=== PATIENT | male | born 1965 | race African-American/Black ===

== ENCOUNTER 2024-06-14 13:43 | Inpatient (IN) | payer OTHER, SELFPAY ==
--- NOTE | ~2024-06-14 | CT_ITS ---
EXAMINATION: CT HEAD WITHOUT CONTRAST CLINICAL INFORMATION: Dizziness COMPARISON: None available. TECHNIQUE: Contiguous axial imaging was performed from the skull base to vertex without intravenous administration of contrast. This CT examination was performed using dose optimization techniques as appropriate, variously including the following: *Automated exposure control *Adjustment of mA and/or kV according to patient size (this includes techniques or standardized protocols for targeted exams where dose is matched to indication/reason for exam; i.e. extremities or head) *Use of iterative reconstruction technique DLP: 735 mGy-cm FINDINGS: No intra or extra-axial fluid collection or hemorrhage, mass, or mass effect. Calvarium intact. CT/CT head/brain wo IV con IMPRESSION: No acute intracranial pathology. Electronically signed by: Scottie Dexter MD 06/14/2024 03:58 PM EDT
--- NOTE | ~2024-06-14 | CT_ITS ---
EXAMINATION: CT ANGIOGRAM HEAD CT ANGIOGRAM NECK CLINICAL INFORMATION: Dizziness. Ataxia. COMPARISON: CT head from 06/14/2024. TECHNIQUE: Initial noncontrast parts lister imaging of the head and neck was performed. Comparison is made with noncontrast head CT from earlier today. Test bolus sequences followed by intravenous administration 70 mL of Omnipaque 350. Helical imaging was performed in the axial plane from the aortic arch to the skull vertex. Delayed postcontrast imaging of the head was also performed. The data was processed at the cytogenetics technologist's workstation for generation of MIP sequences. Angled MIPs and volume rendered reformatted images were also generated at an offline 3D workstation. Stenoses are assessed in accordance with NASCET criteria unless otherwise indicated. This CT examination was performed using dose optimization techniques as appropriate, variously including the following: *Automated exposure control. *Adjustment of mA and/or kV according to patient size (this includes techniques or standardized protocols for targeted exams where dose is matched to indication/reason for exam; i.e. extremities or head). *Use of iterative reconstruction technique. DLP: 1679 mGy-cm FINDINGS: CT Head: There is a small region of loss garay-white matter differentiation in the superior vermis. No evidence of additional acute intracranial hemorrhage or edematous territorial infarction. Garay-white matter differentiation is preserved. A few foci of hypoattenuation in the periventricular and deep white matter are consistent with mild microangiopathy. Persistent cavum septum pellucidum. Otherwise, the ventricles are normal in morphology and size. No evidence for obstructive hydrocephalus. No abnormal mass effect or midline shift. No extra-axial fluid collections. No pathologic intra-axial enhancement. No acute soft tissue or osseous abnormalities. Moderate mucosal thickening of the paranasal sinuses. The mastoid air cells and middle ear cavities are clear. Multifocal odontogenic enamel erosions and periapical lucencies. CT Neck: The thyroid gland and remaining cervical soft tissues are within normal limits. Straightening of the normal cervical lordosis. Moderate degenerative disc disease at C3-C4 and from C5-C7. Facet and uncovertebral joint arthropathy leads to osseous encroachment on the neural foramina from C2-T2. CT Upper Chest: The visualized lung apices and upper mediastinum are within normal limits. Neck CTA: Aortic Arch: Normal contour and caliber. Two vessel branching pattern of the arch with left common carotid artery arising from the brachiocephalic trunk. Great Vessel Origins: No significant stenosis of the branch origins. Right Common Carotid Artery: No focal stenosis or occlusion. Cervical Right Internal Carotid Artery: Mild calcific atherosclerotic disease of the carotid bulb and proximal internal carotid artery without flow-limiting stenosis. Left Common Carotid Artery: No focal stenosis or occlusion. Cervical Left Internal Carotid Artery: Mild mixed fibrofatty and calcific atherosclerotic disease of the carotid bulb and proximal internal carotid artery causing less than 50% stenosis. Cervical Right Vertebral Artery: Co-dominant. No focal stenosis or occlusion. Cervical Left Vertebral Artery: Co-dominant. No focal stenosis or occlusion. Brain CTA: Intracranial Internal Carotid Arteries: Mild calcific atherosclerotic disease of the intracranial internal carotid arteries without occlusion or flow-limiting stenosis. Right Anterior Cerebral Artery: Normal A1 segment. Normal opacification of the distal HEMALATHA segments. Left Anterior Cerebral Artery: Normal A1 segment. Normal opacification of the distal HEMALATHA segments. Anterior Communicating Artery: Normal. Right Middle Cerebral Artery: Normal M1 segment of the MCA without focal stenosis or occlusion. Normal arborization of the distal segments. Left Middle Cerebral Artery: Normal M1 segment of the MCA without focal stenosis or occlusion. Normal arborization of the distal segments. Right Vertebral Artery: Normal V4 segment. Normal opacification of the proximal segments of the posterior inferior cerebellar artery. Left Vertebral Artery: Normal V4 segment. The posterior inferior cerebellar artery is not well opacified; however, there is no CT evidence of acute occlusion. Basilar Artery: Normal without focal stenosis or occlusion. Normal appearance of the proximal superior cerebellar arteries. Right Posterior Cerebral Artery: Normal P1 segment. Normal posterior communicating artery. Normal opacification of the distal CRITICAL CARE NURSE SPECIALIST segments. Left Posterior Cerebral Artery: The P1 segment is mildly diminutive. origin of the CRITICAL CARE NURSE SPECIALIST with robust opacification of the posterior communicating artery. Normal opacification of the distal CRITICAL CARE NURSE SPECIALIST segments. Normal opacification of the superior sagittal, straight, transverse, and sigmoid sinuses. CT/CT angio head neck IMPRESSION: 1. Small region of loss garay-white matter differentiation in the superior vermis suggestive of an acute/subacute infarction. 2. No evidence of additional acute intracranial hemorrhage or edematous territorial infarction. Mild underlying microangiopathy. 3. CTA of the head and neck without proximal occlusion or flow-limiting stenosis. 4. Moderate multilevel degenerative spondyloarthropathy of the cervical spine. Electronically signed by: Jose Aldana DO 06/14/2024 05:30 PM EDT
--- NOTE | ~2024-06-14 | MR_ITS ---
EXAMINATION: MR BRAIN WITHOUT CONTRAST CLINICAL INFORMATION: Acute/subacute cerebrovascular accident. COMPARISON: CTA head and neck from 06/14/2024. TECHNIQUE: MRI of the brain was obtained using routine sequences without contrast. FINDINGS: Small region of restricted diffusion within the superior vermis. Associated T2 FLAIR hyperintensity. Mild susceptibility artifact within this region. No additional restricted diffusion. No evidence of additional acute or chronic hemorrhagic products on heme-sensitive imaging. Scattered periventricular and deep white matter T2 FLAIR hyperintensities consistent with mild underlying microangiopathy. Persistent cavum septum pellucidum et vergae. Otherwise, the ventricles are normal in morphology and size. No abnormal mass effect. No midline shift. Normal appearance of the pituitary gland. Normal positioning of the cerebellar tonsils. Normal arterial and venous vascular flow voids are present. Normal, homogeneous marrow signal. Mild mucosal thickening of the paranasal sinuses. No signal abnormalities within the mastoids. MR/MR head/brain wo con IMPRESSION: 1. Small acute infarct of the superior vermis. Mild susceptibility artifact within this region suggestive of mild petechial hemorrhage. 2. No additional acute intracranial abnormalities. 3. Mild nonspecific chronic white matter changes. Electronically signed by: Jose Aldana DO 06/15/2024 09:10 PM EDT
[2024-06-14 14:34] VITALS: BP 136/84; PULSE 71; RESP 18; TEMP 36.1; O2SAT 99; BMI 29.1
--- NOTE | 2024-06-14 14:40 | ECG_ITS ---
Test Reason : DIZZINESS Blood Pressure : / mmHG Vent. Rate : 068 BPM Atrial Rate : 068 BPM P-R Int : 160 ms QRS Dur : 144 ms QT Int : 440 ms P-R-T Axes : 048 -76 032 degrees QTc Int : 467 ms Normal sinus rhythm Left axis deviation Right bundle branch block Abnormal ECG No previous ECGs available Referred By: Beverly Segura Electronically Signed By:Trung Prince
--- NOTE | 2024-06-14 14:42 | ED_ITS ---
HPI - Dizziness General Chief Complaint: Dizziness Stated Complaint: Vomiting, dizziness Time Seen by Provider: 06/14/24 15:11 History of Present Illness ED Provider: So SHELDON Narrative: The patient is a 59-year-old male who was originally from [facility]. 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 He has a primary care doctor through the [facility] system and he says he has been prescribed medications for hypertension but he does not take them. The patient says that yesterday afternoon he became suddenly and unexpectedly nauseated and vomited several times while driving home from a store. When he got out of the car he felt he had difficulty walking. This was around 4PM yesterday. He went to bed at that point and did not get up again until this morning. This morning he did not have any additional nausea or vomiting but he felt that his gait was abnormal. He has no associated headache. He has no associated speech difficulty. He has no associated sense of numbness or tingling or weakness or burning in his extremities. Because he had ongoing difficulty walking this morning he went to an urgent care center this morning where they told him he should come to the emergency room for further evaluation. He drove himself here. He says he does not have any difficulty driving. He says that he feels dizzy when walking and has difficulty walking but does not feel that head movements exacerbate his symptoms in any way. No headache. No fever, sweats, chills. No chest pain or shortness of breath. Related Data Home Medications ?Medication ?Instructions ?Recorded ?Confirmed cholecalciferol (vitamin D3) 25 25 mcg PO DAILY 06/14/24 06/14/24 mcg (1,000 unit) tablet (Vitamin D3) Allergies Allergy/AdvReac Type Severity Reaction Status Date / Time No Known Allergies Allergy Verified 06/14/24 14:36 Review of Systems 2 Review of Systems: Yes all other systems are reviewed and are negative PMFSH Social History Social History Smoked in Last 30 Days: No Use of substances other than those prescribed or required for medical reasons: No Advance Directives: No Advance Directives Information Provided: Yes Do you have a plan to hurt others: No Plan Physical Exam 2 Vital Signs: Vital Signs: Last Vital Signs Temp 97.2 F 06/14/24 20:29 Pulse 67 06/14/24 20:29 Resp 20 06/14/24 20:29 BP 147/84 H 06/14/24 20:29 Pulse Ox 98 06/14/24 20:29 O2 Del Method Room Air 06/14/24 20:29 BMI result Body Mass Index 29.1 Const: Other: The patient is awake and alert, pleasant and cooperative. He does not appear in obvious distress and he does not have any obvious neurological deficits. HEENT: Other: Face is symmetrical. Tongue is midline. Mucous membranes moist. Eyes: Other: The patient's right pupil is normal. The patient's left pupil has an unusual defect at the lower border of the pupil. The patient says this has been present for several years. Extraocular movements are intact. Visual blue are intact to confrontation. Neck: Neck: Yes full ROM and Yes no JVD Resp: Effort & Inspection: normal respiratory effort Auscultation: clear to auscultation bilaterally Cardio: Rate: regular rate Rhythm: regular rhythm Heart sounds: S1 normal heart sound present and S2 normal heart sound present GI: Other: Abdomen is soft and nontender Skin: Other: The skin is dry and unremarkable Neuro: Other: The patient is awake and alert with a normal mental status. He is appropriately oriented. Extraocular movements are intact. Visual blue are intact to confrontation. Face is symmetrical. Speech is clear. Strength and sensation is normal in all 4 extremities. There is no pronator drift. Finger-nose is normal. Heel-street is normal. Sensation is intact. He has a mild but distinct gait unsteadiness. His NIH stroke scale is 0. Extrem: Other: No peripheral edema Course Course Course Narrative: This is a rapid medical exam performed by Beverly Segura PA-C. The patient is a 59-year-old male otherwise healthy, presenting with dizziness x1 day. Patient states dizziness worse with ambulating, that he has been stumbling to the left. Symptoms are intermittent. On exam, patient objectively stumbled at 1 point, ataxic to the left. Otherwise neurologically intact. I am concerned for posterior circulation stroke. Order screening labs, troponin EKG, CT non- con brain, his assessment will be expedited Medications Administered Generic Name Dose Route Start Last Admin Trade Name Freq PRN Reason Stop Dose Admin Enoxaparin Sodium 40 mg 06/14/24 18:00 06/14/24 17:57 Enoxaparin Sodium 40 Mg/0.4 Ml Syringe SUBCUT 40 mg Q24H DUYEN Administration Discontinued Medications Generic Name Dose Route Start Last Admin Trade Name Latrice PRN Reason Stop Dose Admin Aspirin 324 mg 06/14/24 17:47 06/14/24 17:57 Aspirin 81 Mg Tab.Chew PO 06/14/24 17:48 324 mg ONCE ONE Administration Iohexol 70 ml 06/14/24 16:22 06/14/24 16:23 Iohexol 350 Mg/Ml 75 Ml Infus..Btl IV 06/14/24 16:23 70 ml ONCE ONE Administration Medical Decision Making Medical Decision Making [facility] Narrative: The patient is a 59-year-old male with a history of hypertension who was not currently on any medications. He had abrupt onset of vomiting and dizziness yesterday at 16:00. This was associated with some difficulty walking. The difficulty walking has persisted today. His NIH stroke scale is 0 but the NIH stroke scale does not taken to account gait. The patient presents with symptoms that could potentially be an ischemic stroke. He is not a thrombolytic candidate because his symptoms began more than 20 hours prior to arrival in the emergency room. A noncontrast head CT was done that was negative. Subsequently a CT angiogram of the head and neck was done. This shows no large vessel occlusions but does show possible evidence of a small region in the superior vermis which may represent an acute or subacute stroke. The patient passed his swallow evaluation and was given a dose of aspirin. The patient will be admitted to the hospitalist service for additional stroke care and further workup. Lab Data 06/14/24 15:11 06/14/24 15:11 Labs: Lab Results 06/14/24 Range/Units 15:11 WBC 6.0 (4.8-10.8) X10*3/uL RBC 4.36 L (4.60-5.80) X10*6/uL Hgb 13.4 L (14.0-18.0) g/dl Hct 38.2 L (42.0-52.0) % MCV 87.6 (80.0-98.0) fL MCH 30.7 (27.0-33.0) pg MCHC 35.1 (31.0-36.0) g/dl RDW 12.8 (11.0-16.0) % Plt Count 188 (160-400) X10*3/uL MPV 8.6 L (9.4-12.4) fL Immature Gran % (Auto) 0.2 (0.0-0.4) % Neut % (Auto) 60.5 (45-73) % Lymph % (Auto) 30.2 (20-40) % [place] % (Auto) 8.7 (2-11) % Eos % (Auto) 0.2 (0-4) % Baso % (Auto) 0.2 (0-2) % Lymph # (Auto) 1.8 (1.2-4.9) X10*3/uL [place] # (Auto) 0.5 (0.1-1.2) X10*3/uL Eos # (Auto) 0.0 (0.0-0.4) X10*3/uL Baso # (Auto) 0.0 (0.0-0.2) X10*3/uL Abs Immat Gran (auto) 0.01 (0.00-0.03) X10*3/uL Absolute Neuts (auto) 3.6 (2.0-8.3) x10*3/uL Absolute Nucleated RBC 0.000 (0.0-0.012) X10*3/uL Nucleated RBC % (auto) 0.0 (0.0-0.2) /100WBC Sodium 145 (135-145) mmol/L Potassium 3.5 (3.3-5.1) mmol/L Chloride 110 H (96-108) mmol/L Carbon Dioxide 27 (22-29) mmol/L Anion Gap 12 (12-20) BUN 9 (9-16) mg/dL Creatinine 0.98 (0.5-1.4) mg/dL Estim Creat Clear Calc 79.7 Estimated GFR > 60 Random Glucose 116 H (60-115) mg/dL Calcium 9.7 (8.4-10.2) mg/dL Magnesium 2.2 (1.6-2.6) mg/dL Total Bilirubin 0.7 (0.0-1.0) mg/dL AST 25 (5-37) U/L ALT 14 (0-40) U/L Alkaline Phosphatase 96 (39-117) U/L Troponin I High Sens < 2.7 (<3.5-35.0) ng/L Total Protein 7.5 (6.5-8.0) g/dL Albumin 4.3 (3.5-5.0) g/dL Critical Care Time Critical Care Time Critical Care Time: Yes Total Critical Care Time: 35 Attestation: The patient was critically ill with a high probability of imminent or life- threatening deterioration. ?I spent greater than 30 minutes of discontinuous time evaluating the patient, delivering critical care at the bedside, discussing evaluating data with consultants. ?Critical care time does not include time spent performing separately billable procedures or teaching. ?Time spent performing critical care with 35 minutes. Discharge Plan Discharge Clinical Impression: Difficulty walking Patient Disposition: Admitted As Inpatient
[2024-06-14 15:15] LABS: MANUAL DIFF FLAG NO
--- NOTE | 2024-06-14 15:15 | PC.NURSE ---
pt to CT scan
[2024-06-14 15:16] LABS: Basophils Percent Auto 0.2 % (0-2); Eosinophils Percent Auto 0.2 % (0-4); Hematocrit 38.2 % (42.0-52.0); Hemoglobin 13.4 g/dl (14.0-18.0); Imm Gran Abs Auto 0.01 X10*3/uL (0.00-0.03); Imm Gran Pct Auto 0.2 % (0.0-0.4); Lymphocytes Absolute Auto 1.8 X10*3/uL (1.2-4.9); Lymphocytes Percent Auto 30.2 % (20-40); Mean Corpuscular HGB Conc 35.1 g/dl (31.0-36.0); Mean Corpuscular Hemoglobin 30.7 pg (27.0-33.0); Mean Corpuscular Volume 87.6 fL (80.0-98.0); Mean Platelet Volume 8.6 fL (9.4-12.4); Monocytes Absolute Auto 0.5 X10*3/uL (0.1-1.2); Monocytes Percent Auto 8.7 % (2-11); Neutrophils Absolute Auto 3.6 x10*3/uL (2.0-8.3); Neutrophils Percent Auto 60.5 % (45-73); Platelet Count 188 X10*3/uL (160-400); Red Blood Count 4.36 X10*6/uL (4.60-5.80); Red Cell Distribution Width 12.8 % (11.0-16.0)
--- NOTE | 2024-06-14 15:18 | PC.NURSE ---
patient from external triage with cc of dizziness that happened yesterday after an episode of vomiting. patient states he got very dizzy yesterday and it has since resolved. patient states he went to urgent care and had negative workup and was told to come to ed for further assessment and evaluation. patient denies any complaints at this time, denies significant pmhx, denies chest pain or shortness of breath or swelling of extremities. neuros are intact. patients left pupil appears misshapen and dilated, patient states that is something that has been going on for a long time for him, he has an appointment with a specialist, states he has blurred vision out of that eye all of the time, but is not experiencing new symptoms. patient speaking in clear and complete sentences. equal strength bilaterally. blood work obtained and sent to lab.
[2024-06-14 15:46] LABS: Alanine Aminotransferase 14 U/L (0-40); Albumin Level 4.3 g/dL (3.5-5.0); Alkaline Phosphatase 96 U/L (39-117); Anion Gap 12 (12-20); Aspartate Amino Transferase 25 U/L (5-37); Bilirubin Total 0.7 mg/dL (0.0-1.0); Blood Urea Nitrogen 9 mg/dL (9-16); Calcium 9.7 mg/dL (8.4-10.2); Carbon Dioxide 27 mmol/L (22-29); Chloride 110 mmol/L (96-108); Creatinine Clr Calc Pharmacy 79.7; Estimated Glomerular Filt Rate > 60; Glucose Random 116 mg/dL (60-115); Magnesium 2.2 mg/dL (1.6-2.6); Potassium 3.5 mmol/L (3.3-5.1); Sodium 145 mmol/L (135-145); Total Protein 7.5 g/dL (6.5-8.0)
[2024-06-14 15:59] LABS: Troponin-I High Sensitivity < 2.7 ng/L (<3.5-35.0)
--- NOTE | 2024-06-14 16:15 | PC.NURSE ---
patient to CT, upon recieving contrast dye had significant episode of vomiting. upon this RN entering CT scan patient had no other complaints, no c/o rash, tingling or shortness of breath. made aware
[2024-06-14] MEDS: iohexoL 350 MG/ML 75 ML INFUS..BTL 70 ML IV (16:23)
[2024-06-14 16:31] VITALS: BP 162/85; PULSE 77; RESP 21; TEMP 36.2; O2SAT 99
[2024-06-14 17:54] VITALS: BP 150/85; PULSE 67; RESP 18; TEMP 36.8; O2SAT 96
[2024-06-14] MEDS: Enoxaparin Sodium 40 MG/0.4 ML SYRINGE SUBCUT (17:57)
[2024-06-14] MEDS: Aspirin 81 MG TAB.CHEW 324 MG PO (17:57)
--- NOTE | 2024-06-14 18:07 | P.HPHOSP_ITS ---
History of Present Illness Date of Service: 06/14/24 Chief Complaint: Nausea vomiting/unsteady gait 59-year-old gentleman originally from [place] with past medical history significant for hypertension, not taking antihypertensive prescribed by his PCP, since feel blood pressure fluctuates between normal to high, presented to [place] emergency room today, since yesterday afternoon after driving back from work he developed sudden onset of nausea and vomiting several times bilious , nonbloody without associated abdominal pain, no fevers no chills, when he got out of car he noted to have unsteady gait and dizziness, he went home and slept overnight this morning he woke up and continued to have dizziness and unsteady gait, not falling to 1 side, without recurrent nausea, vomiting, no associated weakness, numbness of extremities, no headache, no speech impairment denies similar symptoms in the past, due to these symptoms he went to urgent Care Clinic and was referred to [place] ED in the emergency room patient noted to have a normal neuro examination, CT head unremarkable, CBC showed hematocrit 38.2, normal platelet and WBC, normal electrolytes and renal function, blood sugar 116, magnesium normal, urine toxicology pending, CTA head and neck showed small region of loss of lazo-white matter differentiation in the superior vermis suggestive of an acute/subacute infarction, no evidence of additional acute intracranial hemorrhage or edematous territory infarction noted patient is being admitted to [facility] for further workup of acute CVA, EKG showed normal sinus rhythm, right bundle branch block no previous EKGs for comparison. Review of Systems 2 Review of Systems: General no headache, no fever chills. CVS no chest pain, no palpitation. Respiratory no cough, no sob, Gastrointestinal no nausea no vomiting, no abdominal pain no urgency, no frequency Skin no rash All other system reviewed and are negative PMFSH Pertinent family history: Both parents are diseased and of old age No family history of coronary artery disease, CVA Social History Household Members: Family Housing: Apartment Do you presently have visiting nurse or other home services: No Patient Tobacco Use Status: Never used Tobacco Smoked in Last 30 Days: No e-Cigarette/Vaping Use: Never Used Use of substances other than those prescribed or required for medical reasons: No Currently Displaying Signs/Symptoms of Drug Intoxication Withdrawal: No Any prior treatment program specific to substance use: No Have you been hit, kicked, punched, or otherwise hurt by someone within the past year? If so, by whom?: No Do you feel safe in your current relationship?: Yes Is there a partner from a previous relationship who is making you feel unsafe now?: No Are you made to feel afraid or neglected: No Advance Directives: No Advance Directives Information Provided: Yes Do you have a plan to hurt others: No Plan Recently lost weight without trying: No Nutrition Risks: No Nutritional Risk Poor oral hygiene: No Meds Allergies Allergy/AdvReac Type Severity Reaction Status Date / Time No Known Allergies Allergy Verified 06/14/24 14:36 Active Medications: Current Medications Acetaminophen (Acetaminophen 325 Mg Tablet) 650 mg PO Q6H PRN PRN Reason: Pain, Mild (Pain Scale 1-3), fever or headache Calcium Carbonate (Calcium Carbonate 750 Mg Tab.Chew) 750 mg PO Q4H PRN PRN Reason: Heartburn Enoxaparin Sodium (Enoxaparin Sodium 40 Mg/0.4 Ml Syringe) 40 mg SUBCUT Q24H [facility] Last Admin: 06/14/24 17:57 Dose: 40 mg Magnesium Hydroxide (Milk Of Magnesia 30 Ml Oral.Susp) 30 ml PO DAILY PRN PRN Reason: Constipation Melatonin (Melatonin 3 Mg Tablet) 6 mg PO BEDTIME PRN PRN Reason: Insomnia Ondansetron HCl (Ondansetron Hcl 4 Mg/2 Ml Vial) 4 mg IVPUSH Q8H PRN PRN Reason: Nausea and Vomiting Sodium Chloride (0.9 % Sodium Chloride Flush 3 Ml Syringe) 3 ml IVFLUSH QSHIFT [facility] Home Medications ?Medication ?Instructions ?Recorded ?Confirmed ?Last Taken ?Type cholecalciferol (vitamin D3) 25 25 mcg PO DAILY 06/14/24 06/14/24 06/13/24 History mcg (1,000 unit) tablet (Vitamin D3) Physical Exam 2 Vital Signs and Narrative: Vital Signs: Last Vital Signs Temp 98.2 F 06/14/24 17:54 Pulse 67 06/14/24 17:54 Resp 18 06/14/24 17:54 BP 150/85 H 06/14/24 17:54 Pulse Ox 96 06/14/24 17:54 O2 Del Method Room Air 06/14/24 17:54 BMI result Body Mass Index 29.1 Const: Other: General resting comfortably in no acute distress. Anicteric sclera/no nystagmus Neck no JVD. CVS regular rate rhythm, Respiratory lungs clear to auscultation, no respiratory distress, no wheeze, no rhonchi. Gastrointestinal abdomen soft, non tender, bowel sounds audible, no guarding , no rigidity. Extremities no edema. Neuro non focal ,moving all 4 extremity, speech clear, gait unsteady. Skin no rash Psych appropriate affect Results Labs 06/14/24 15:11 06/14/24 15:11 Labs: Laboratory Results - last 24 hr 06/14/24 15:11 MCV 87.6 MCH 30.7 MCHC 35.1 RDW 12.8 Plt Count 188 MPV 8.6 L Immature Gran % (Auto) 0.2 Neut % (Auto) 60.5 Lymph % (Auto) 30.2 [place] % (Auto) 8.7 Eos % (Auto) 0.2 Baso % (Auto) 0.2 Lymph # (Auto) 1.8 [place] # (Auto) 0.5 Eos # (Auto) 0.0 Baso # (Auto) 0.0 Abs Immat Gran (auto) 0.01 Absolute Neuts (auto) 3.6 Absolute Nucleated RBC 0.000 Nucleated RBC % (auto) 0.0 Anion Gap 12 Estim Creat Clear Calc 79.7 Estimated GFR > 60 Random Glucose 116 H Calcium 9.7 Magnesium 2.2 Total Bilirubin 0.7 AST 25 ALT 14 Alkaline Phosphatase 96 Troponin I High Sens < 2.7 Total Protein 7.5 Albumin 4.3 Imaging Radiologist's Impressions: Impressions Head CT 06/14/24 15:17 IMPRESSION: No acute intracranial pathology. Electronically signed by: Scottie Dexter MD 06/14/2024 03:58 PM EDT RP Head/Neck CTA 06/14/24 16:06 IMPRESSION: 1. Small region of loss lazo-white matter differentiation in the superior vermis suggestive of an acute/subacute infarction. 2. No evidence of additional acute intracranial hemorrhage or edematous territorial infarction. Mild underlying microangiopathy. 3. CTA of the head and neck without proximal occlusion or flow-limiting stenosis. 4. Moderate multilevel degenerative spondyloarthropathy of the cervical spine. Electronically signed by: Jose Aldana DO 06/14/2024 05:30 PM EDT RP Assessment and Plan (1) Acute CVA (cerebrovascular accident): Status: Acute Plan 59-year-old gentleman with past medical history of hypertension presented with nausea vomiting and unsteady gait and diagnosed to have acute/subacute CVA superior vermis. Acute/subacute CVA Admit to telemetry Obtain PT/OT eval Follow blood pressure, allow permissive hypertension No significant risk factors for stroke other than hypertension/check lipid profile, hemoglobin A1c, check echo Aspirin/statin Cardiac diet passed bedside swallow eval Neuro consult History of hypertension follow BP DVT prophylaxis with Lovenox Full code In my clinical judgment patient require inpatient hospitalization for management and further workup for acute CVA and expert consultation. Quality Stroke Does the patient have a stroke diagnosis?: No VTE Prior VTE?: No VTE Risk Level:: Medical - moderate - high VTE Device Contraindication: Treatment Not Indicated VTE Drug Contraindication: N/A - Med Ordered
[2024-06-14 18:17] LABS: Amphetamine Screen Urine Not Detected (Not Detect); Barbiturates, Urine Not Detected (Not Detect); Benzodiazepines Screen Urine Not Detected (Not Detect); Buprenorphine Scr Not Detected (Not Detect); Cannabinoid Screen Urine Not Detected (Not Detect); Cocaine Screen Urine Not Detected (Not Detect); Fentanyl, urine Not Detected (Not Detect); Methadone Screen, Urine Not Detected (Not Detect); Opiate Screen Urine Not Detected (Not Detect); Oxycodone Screen Urine Not Detected (Not Detect); Phencyclidine Screen Urine Not Detected (Not Detect)
--- NOTE | 2024-06-14 19:54 | PHA.MEDREC ---
Addendum entered by Vincenzo Schwab RPh 06/14/24 20:00: [facility] rec reviewed Original Note: Pharmacy Consult ? Medication Reconciliation Pharmacy has completed the medication reconciliation. Confirmed medications with patient. The patient states he is only taking a Vitamin D3 25mcg (1,000 units) tab once daily. He states he never got the Diclofenac Gel. He also states he has not taken his Amlodipine 2.5mg tabs in about a week, stating his blood pressure dropped and was normal so he stopped it. He states he took the Vitamin D3 yesterday.
[2024-06-14 20:29] VITALS: BP 147/84; PULSE 67; RESP 20; TEMP 36.2; O2SAT 98
[2024-06-15] VITALS (9 sets, daily range): BP systolic 117–161; BP diastolic 63–98; PULSE 57–72; RESP 12–24; TEMP 36.1–36.9; O2SAT 97–100
[2024-06-15] MEDS: 0.9 % Sodium Chloride Flush 3 ML SYRINGE IVFLUSH ×3 (00:05→20:56)
[2024-06-15 06:58] LABS: Cholesterol 188 mg/dL (<200); HDL Cholesterol 45 mg/dL (>40); LDL Cholesterol Calculated 131 mg/dL (<100); Triglycerides 64 mg/dL (<150)
--- NOTE | 2024-06-15 07:00 | CA_ITS ---
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 There is mildly increased left ventricular wall thickness. The left ventricular systolic function is hyperdynamic. The visually estimated ejection fraction is >70%. - Normal right ventricular cavity size and systolic function. - Contrast study for right to left shunting is severely positive with Valsalva maneuver. Patent foramen ovale detected using by contrast. There is evidence of a patent foramen ovale with right to left shunting. Findings Left Ventricle Normal left ventricular cavity size. There is mildly increased left ventricular wall thickness. The left ventricular systolic function is hyperdynamic. The visually estimated ejection fraction is >70%. There is no evidence of regional wall motion abnormalities. Diastolic function is normal for age. Right Ventricle Normal right ventricular cavity size and systolic function. Atria The left atrium is mildly dilated. Contrast study for right to left shunting is severely positive with Valsalva maneuver. Patent foramen ovale detected using by contrast. There is evidence of a patent foramen ovale with right to left shunting. Aortic Valve There is a normal trileaflet aortic valve. There is mild thickening of the aortic valve. There is no aortic valve stenosis. There is no aortic valve regurgitation. Mitral Valve The mitral valve appears normal. There is trace mitral valve regurgitation. There is no mitral valve stenosis. Pulmonic Valve The pulmonic valve is likely normal. Tricuspid Valve Normal tricuspid valve structure. There is trace tricuspid valve regurgitation. Normal right atrial pressure. There is no evidence of pulmonary hypertension. Great Vessels All visible segments of the aorta are normal in size. Venous The inferior vena cava is normal in size and collapses greater than 50% with inspiration. Pericardium/Pleural There is no evidence of pericardial effusion. Prior Study Comparison No prior study available for comparison. Measurements 2D Linear Measurements IVSd: 1.27 0.6-0.9/0.6-1.0 cm LVIDd: 4.69 3.9-5.3/4.2-5.9 cm LVIDd Index: 2.51 2.4-3.2/2.2-3.1 cm/m2 LVIDs: 2.67 2.0-3.6 cm LVPWd: 1.24 0.7-1.1 cm Ao Root: 3.20 2.1-3.5 cm LA Diam: 3.50 2.7-3.8/3.0-4.0 cm LAIDs Index: 1.87 1.5-2.3 cm/m2 LV Mass: 280.89 67-162/88-224 g LV Mass Index: 150.21 43-95/49-115 g/m2 LVOT Diam: 2.10 3.0+(-)1.3 cm Mitral Valve MV Pk E: 0.54 MV PK A: 0.79 MV Decel Time: 241.00 E/A: 0.70 E'Lateral: 8.49 E'Medial: 5.22 E/E' Med: 10.30 E/E' Lat: 6.30 PHT: 71.00 MVA PHT: 3.10 Decel Charlton: 2.22 Aortic Valve AoV Pk Piotr: 1.47 AoV Mn Piotr: 0.96 AoV VTI: 0.27 AoV Pk Grad: 9.00 Aov Mn Grad: 4.00 STEFANIE Cont.VTI: 2.83 LVOT LVOT Pk Piotr: 1.04 LVOT Mn Piotr: 0.67 LVOT VTI: 0.22 LVOT Pk Grad: 4.00 LVOT Mn Grad: 2.00 LVOT Diam: 2.10 LVOT Area: 3.46 Diastolic Function MV Pk E: 0.54 MV Pk A: 0.79 E/A: 0.70 E'Medial: 5.22 E/E' Med: 10.30 E' Laterial: 8.49 E/E' Lat: 6.30 Right Ventricle TAPSE (mm): 24.00 TVS' Piotr: 13.00 Tricuspid Valve TR Pk Piotr: 2.23 TR Pk Grad: 20.00 RA Press: 3.00 RVSP: 23.00 Great Vessels Aorta Ao Root-2D: 3.20 2.0-3.7 cm Ao Asc: 3.30 2.1-3.4 cm Pulmonary Valve PV Pk Piotr: 1.17 Peak PV Grad: 5.00 Updated in Other Vendor System with Status of Final Trung Prince MD electronically signed on 06/16/2024 11:15:51 AM with status of Final
[2024-06-15 07:04] LABS: Estimated Average Glucose 100 mg/dL; Hemoglobin A1C 109.8629 umol/L; Hemoglobin A1c % 5.1 % (<6.0)
[2024-06-15] MEDS: Atorvastatin Calcium 40 MG TABLET PO (08:54)
[2024-06-15] MEDS: Aspirin Enteric Coated 81 MG TABLET.DR PO (08:54)
[2024-06-15] MEDS: Cholecalciferol (Vitamin D3) 25 MCG TABLET PO (08:54)
--- NOTE | 2024-06-15 09:49 | MHC.CM.PN ---
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 He said he will drive himself home, and he will go back to work. 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 HCP discussed, he declined to complete. PCP confirmed: Pennie Steele. DCP: home, self care. CM to follow for DC needs.
--- NOTE | 2024-06-15 16:48 | P.CNNE_ITS ---
History of Present Illness Data of Consult Service Date: 06/15/24 Primary Care Provider: Pennie Steele MD [facility] Reason for consult: ? stroke 59-year-old gentleman originally from [place] with past medical history significant for hypertension, not taking antihypertensive prescribed by his PCP, since feel blood pressure fluctuates between normal to high, presented to [place] emergency room today, since yesterday afternoon after driving back from work he developed sudden onset of nausea and vomiting several times bilious , nonbloody without associated abdominal pain, no fevers no chills, when he got out of car he noted to have unsteady gait and dizziness, he went home and slept overnight this morning he woke up and continued to have dizziness and unsteady gait, not falling to 1 side, without recurrent nausea, vomiting, no associated weakness, numbness of extremities, no headache, no speech impairment denies similar symptoms in the past, due to these symptoms he went to urgent Care Clinic and was referred to [facility] ED in the emergency room patient noted to have a normal neuro examination, CT head unremarkable, CBC showed hematocrit 38.2, normal platelet and WBC, normal electrolytes and renal function, blood sugar 116, magnesium normal, urine toxicology pending, CTA head and neck showed small region of loss of lazo-white matter differentiation in the superior vermis suggestive of an acute/subacute infarction [facility] Social History Social History Household Members: Family Housing: Apartment Do you presently have visiting nurse or other home services: No Patient Tobacco Use Status: Never used Tobacco Smoked in Last 30 Days: No e-Cigarette/Vaping Use: Never Used Use of substances other than those prescribed or required for medical reasons: No Currently Displaying Signs/Symptoms of Drug Intoxication Withdrawal: No Any prior treatment program specific to substance use: No Have you been hit, kicked, punched, or otherwise hurt by someone within the past year? If so, by whom?: No Do you feel safe in your current relationship?: Yes Is there a partner from a previous relationship who is making you feel unsafe now?: No Are you made to feel afraid or neglected: No Advance Directives: No Advance Directives Information Provided: Yes Do you have a plan to hurt others: No Plan Recently lost weight without trying: No Nutrition Risks: No Nutritional Risk Poor oral hygiene: No service: No Meds Allergies Allergy/AdvReac Type Severity Reaction Status Date / Time No Known Allergies Allergy Verified 06/14/24 14:36 Active Medications: Current Medications Acetaminophen (Acetaminophen 325 Mg Tablet) 650 mg PO Q6H PRN PRN Reason: Pain, Mild (Pain Scale 1-3), fever or headache Aspirin (Aspirin Enteric Coated 81 Mg Tablet.) 81 mg PO DAILY [facility] Last Admin: 06/15/24 08:54 Dose: 81 mg Atorvastatin Calcium (Atorvastatin Calcium 40 Mg Tablet) 40 mg PO DAILY [facility] Last Admin: 06/15/24 08:54 Dose: 40 mg Calcium Carbonate (Calcium Carbonate 750 Mg Tab.Chew) 750 mg PO Q4H PRN PRN Reason: Heartburn Enoxaparin Sodium (Enoxaparin Sodium 40 Mg/0.4 Ml Syringe) 40 mg SUBCUT Q24H [facility] Last Admin: 06/14/24 17:57 Dose: 40 mg Magnesium Hydroxide (Milk Of Magnesia 30 Ml Oral.Susp) 30 ml PO DAILY PRN PRN Reason: Constipation Melatonin (Melatonin 3 Mg Tablet) 6 mg PO BEDTIME PRN PRN Reason: Insomnia Ondansetron HCl (Ondansetron Hcl 4 Mg/2 Ml Vial) 4 mg IVPUSH Q8H PRN PRN Reason: Nausea and Vomiting Sodium Chloride (0.9 % Sodium Chloride Flush 3 Ml Syringe) 3 ml IVFLUSH QSHIFT [facility] Last Admin: 06/15/24 08:54 Dose: 3 ml Vitamin D (Cholecalciferol (Vitamin D3) 25 Mcg Tablet) 25 mcg PO DAILY [facility] Last Admin: 06/15/24 08:54 Dose: 25 mcg Home Medications ?Medication ?Instructions ?Recorded ?Confirmed ?Last Taken ?Type cholecalciferol (vitamin D3) 25 25 mcg PO DAILY 06/14/24 06/14/24 06/13/24 History mcg (1,000 unit) tablet (Vitamin D3) Physical Exam 2 Vital Signs: Vital Signs: Last Vital Signs Temp 97.3 F 06/15/24 16:00 Pulse 70 06/15/24 16:00 Resp 24 H 06/15/24 16:00 BP 147/85 H 06/15/24 16:00 Pulse Ox 97 06/15/24 16:00 O2 Del Method Room Air 06/15/24 16:00 BMI result Body Mass Index 29.1 Neuro: Other: Mild truncal ataxia on tandem walking, otherwise unremarkable. Normal examination Results Labs 06/14/24 15:11 06/14/24 15:11 Assessment and Plan (1) Acute CVA (cerebrovascular accident): Status: Acute Acute onset of vomiting dizziness and off balance with a low density in the cerebellar vermis. This is an unusual location for an infarct. His symptoms have mostly resolved, although I still feel there is slight truncal ataxia. Recommendations: MRI of the brain to evaluate cerebellar vermian lesion. CTA was unremarkable Procedures Date of Service Date of Service: 06/15/24
[2024-06-15] MEDS: Enoxaparin Sodium 40 MG/0.4 ML SYRINGE SUBCUT (20:56)
[2024-06-16 04:00] VITALS: BP 127/66; PULSE 66; RESP 16; TEMP 36.1; O2SAT 98
[2024-06-16 07:43] VITALS: BP 145/71; PULSE 70; RESP 17; TEMP 36.7; O2SAT 98
[2024-06-16] MEDS: Cholecalciferol (Vitamin D3) 25 MCG TABLET PO (08:45)
[2024-06-16] MEDS: Aspirin Enteric Coated 81 MG TABLET.DR PO (08:45)
[2024-06-16] MEDS: Atorvastatin Calcium 40 MG TABLET PO (08:45)
[2024-06-16] MEDS: 0.9 % Sodium Chloride Flush 3 ML SYRINGE IVFLUSH (08:47)
--- NOTE | 2024-06-16 11:18 | PM.CNCAR ---
History of Present Illness History of Present Illness Date of Service: 06/16/24 Requesting physician: Lana Perez Chief complaint: Stroke Narrative: Pleasant 59-year-old gentleman who has history of hypertension presenting with nausea vomiting and dizziness. Brain imaging has shown acute CVA. He underwent echocardiography which is showing large PFO with [id number] shunting with Valsalva. He said he had hypertension history and was taking medications before but his blood pressure improved so he stopped using the antihypertensive medications. He has recovered at this point significantly. He has no symptoms. No chest pain or shortness of breath. He is a nonsmoker. He is not diabetic. [facility] Social History Social History Household Members: Family Housing: Apartment Do you presently have visiting nurse or other home services: No Patient Tobacco Use Status: Never used Tobacco Smoked in Last 30 Days: No e-Cigarette/Vaping Use: Never Used Use of substances other than those prescribed or required for medical reasons: No Currently Displaying Signs/Symptoms of Drug Intoxication Withdrawal: No Any prior treatment program specific to substance use: No Have you been hit, kicked, punched, or otherwise hurt by someone within the past year? If so, by whom?: No Do you feel safe in your current relationship?: Yes Is there a partner from a previous relationship who is making you feel unsafe now?: No Are you made to feel afraid or neglected: No Advance Directives: No Advance Directives Information Provided: Yes Do you have a plan to hurt others: No Plan Recently lost weight without trying: No Nutrition Risks: No Nutritional Risk Poor oral hygiene: No service: No Meds Allergies Allergy/AdvReac Type Severity Reaction Status Date / Time No Known Allergies Allergy Verified 06/14/24 14:36 Active Medications: Current Medications Acetaminophen (Acetaminophen 325 Mg Tablet) 650 mg PO Q6H PRN PRN Reason: Pain, Mild (Pain Scale 1-3), fever or headache Aspirin (Aspirin Enteric Coated 81 Mg Tablet.) 81 mg PO DAILY [facility] Last Admin: 06/16/24 08:45 Dose: 81 mg Atorvastatin Calcium (Atorvastatin Calcium 40 Mg Tablet) 40 mg PO DAILY [facility] Last Admin: 06/16/24 08:45 Dose: 40 mg Calcium Carbonate (Calcium Carbonate 750 Mg Tab.Chew) 750 mg PO Q4H PRN PRN Reason: Heartburn Enoxaparin Sodium (Enoxaparin Sodium 40 Mg/0.4 Ml Syringe) 40 mg SUBCUT Q24H [facility] Last Admin: 06/15/24 20:56 Dose: 40 mg Magnesium Hydroxide (Milk Of Magnesia 30 Ml Oral.Susp) 30 ml PO DAILY PRN PRN Reason: Constipation Melatonin (Melatonin 3 Mg Tablet) 6 mg PO BEDTIME PRN PRN Reason: Insomnia Ondansetron HCl (Ondansetron Hcl 4 Mg/2 Ml Vial) 4 mg IVPUSH Q8H PRN PRN Reason: Nausea and Vomiting Sodium Chloride (0.9 % Sodium Chloride Flush 3 Ml Syringe) 3 ml IVFLUSH QSHIFT [facility] Last Admin: 06/16/24 08:47 Dose: 3 ml Vitamin D (Cholecalciferol (Vitamin D3) 25 Mcg Tablet) 25 mcg PO DAILY [facility] Last Admin: 06/16/24 08:45 Dose: 25 mcg Home Medications ?Medication ?Instructions ?Recorded ?Confirmed ?Last Taken ?Type cholecalciferol (vitamin D3) 25 25 mcg PO DAILY 06/14/24 06/14/24 06/13/24 History mcg (1,000 unit) tablet (Vitamin D3) Physical Exam Vital Signs: Vital Signs: Last Vital Signs Temp 98.1 F 06/16/24 07:43 Pulse 70 06/16/24 07:43 Resp 17 06/16/24 07:43 BP 145/71 H 06/16/24 07:43 Pulse Ox 98 06/16/24 07:43 O2 Del Method Room Air 06/16/24 07:43 BMI result Body Mass Index 29.1 GENERAL APPEARANCE: in no acute distress, pleasant. NECK: no carotid bruit, no jugular venous distention. SKIN: no suspicious lesions, warm and dry. HEART: no murmurs, regular rate and rhythm. LUNGS: clear to auscultation bilaterally. ABDOMEN: soft, nontender. EXTREMITIES: no edema. PERIPHERAL PULSES: equal. NEUROLOGIC: No gross deficits, AAO X 3 Objective Labs and Meds 06/14/24 15:11 06/14/24 15:11 Imaging Radiologist's impression: Impressions Brain MRI 06/15/24 17:00 IMPRESSION: 1. Small acute infarct of the superior vermis. Mild susceptibility artifact within this region suggestive of mild petechial hemorrhage. 2. No additional acute intracranial abnormalities. 3. Mild nonspecific chronic white matter changes. Electronically signed by: Jose Aldana DO 06/15/2024 09:10 PM EDT Assessment and Plan (1) Acute CVA (cerebrovascular accident): Status: Acute (2) PFO (patent foramen ovale): Status: Acute Plan Pleasant 59-year-old gentleman with acute CVA and patent Roldan ovale on bubble study. Neurology has recommended apixaban 5 mg twice a day. This can be continued. Ideally antiplatelet therapy should be used but can continue apixaban. We will arrange a cardiac event monitor to rule out atrial fibrillation. He will also need hypercoagulable workup. If this testing is normal then we will refer him for PFO closure. He will need CHIVO before that for planning. He will see us back in few months. Thank you for allowing me to participate in the care of your patient. Please feel free to contact me if you have any questions. Procedures Date of Service Date of Service: 06/16/24
[2024-06-16 11:26] VITALS: BP 139/62; PULSE 72; RESP 17; TEMP 36.4; O2SAT 98
--- NOTE | 2024-06-16 12:44 | PM.DS ---
DS: Providers Provider Date of Service: 06/16/24 Date of admission: 06/14/24 17:48 Date of discharge: 06/16/24 Primary care physician: Pennie Setele MD Consults: 06/14/24 18:02 Consult to Neurology Routine Consulting Provider: [facility] Reason for consultation: acute/subacute infarction superior vermis Has provider been notified: No 06/16/24 11:48 Consult to Cardiology Routine Consulting Provider: Trung Prince Reason for consultation: pfo/cva Has provider been notified: No DS: Diagnosis Discharge Diagnosis (1) Acute CVA (cerebrovascular accident): Status: Acute DS: Summary Hospital Course Hospital Course: Date of Service: 06/14/24 Chief Complaint: Nausea vomiting/unsteady gait 59-year-old gentleman originally from [place] with past medical history significant for hypertension, not taking antihypertensive prescribed by his PCP, since feel blood pressure fluctuates between normal to high, presented to [place] emergency room today, since yesterday afternoon after driving back from work he developed sudden onset of nausea and vomiting several times bilious , nonbloody without associated abdominal pain, no fevers no chills, when he got out of car he noted to have unsteady gait and dizziness, he went home and slept overnight this morning he woke up and continued to have dizziness and unsteady gait, not falling to 1 side, without recurrent nausea, vomiting, no associated weakness, numbness of extremities, no headache, no speech impairment denies similar symptoms in the past, due to these symptoms he went to urgent Care Clinic and was referred to [place] ED in the emergency room patient noted to have a normal neuro examination, CT head unremarkable, CBC showed hematocrit 38.2, normal platelet and WBC, normal electrolytes and renal function, blood sugar 116, magnesium normal, urine toxicology pending, CTA head and neck showed small region of loss of lazo-white matter differentiation in the superior vermis suggestive of an acute/subacute infarction, no evidence of additional acute intracranial hemorrhage or edematous territory infarction noted patient is being admitted to [facility] for further workup of acute CVA, EKG showed normal sinus rhythm, right bundle branch block no previous EKGs for comparison. Hospital course: 59-year-old gentleman with past medical history of hypertension presented with nausea, vomiting and unsteady gait, and diagnosed to have acute/subacute CVA superior vermis infarction, admitted to telemetry unit, patient had no recurrent episode of nausea, vomiting, gait also significantly improved, patient placed on aspirin, statins, noted to have LDL of 131, total cholesterol 188, hemoglobin A1c 5.1, seen by Physical therapy they recommend outpatient PT ,subsequently patient seen by Neurology, due to unusual location of infarction, an MRI brain was obtained, that confirmed the small acute infarction of superior vermis, an echocardiogram showed PFO with right to left shunting, noted to have normal EF and diastolic function and no evidence of regional wall motion abnormality, case discussed with Neurology Dr. Ward he recommended anticoagulation, case discussed with Cardiology they recommend outpatient Cardiology follow-up for cardiac event monitoring and further treatment depending on results. Patient informed about all imaging and echo findings and is agreeable to above treatment, recommend to continue Norvasc 2.5 mg as before. Time Attestation Discharge Coordination Time (in mins): 40 Quality: Safe Use of Opioids Does Pt have an Active Cancer Diagnosis on the Problem List?: No Quality: Stroke Does the patient have a stroke diagnosis?: No Physical Exam Vital Signs: Vital Signs: Last Vital Signs Temp 97.5 F 06/16/24 11:26 Pulse 72 06/16/24 11:26 Resp 17 06/16/24 11:26 BP 139/62 06/16/24 11:26 Pulse Ox 98 06/16/24 11:26 O2 Del Method Room Air 06/16/24 11:26 BMI result Body Mass Index 29.1 Const: Other: General resting comfortably in no acute distress. Anicteric sclera/no nystagmus Neck no JVD. CVS regular rate rhythm, Respiratory lungs clear to auscultation, no respiratory distress, no wheeze, no rhonchi. Gastrointestinal abdomen soft, non tender, bowel sounds audible, no guarding , no rigidity. Extremities no edema. Neuro non focal ,moving all 4 extremity, speech clear, unsteady gait improved. Skin no rash Psych appropriate affect Discharge Plan Discharge Anticipated Discharge Date/Time: 06/16/24 11:26 Patient Disposition: Home Health Service Discharge Diagnosis: Acute CVA Patent foramen Ovale Referrals: Pennie Steele MD [Primary Care Provider] - 1 Week Discharge Medications: New atorvastatin 40 mg Tablet 40 mg PO DAILY Qty: 30 0RF Eliquis 5 mg tablet 5 mg PO BID Qty: 60 0RF Continued cholecalciferol (vitamin D3) [Vitamin D3] 25 mcg (1,000 unit) Tablet 25 mcg PO DAILY Discharge Orders: Discharge Order (Routine); Ordered 06/16/24 Ordered By: Lana Perez Diet: Low fat, low cholesterol Activity on Discharge: As tolerated Stand Alone Forms: Patient Portal Discharge page Print Language: Citizen Of [place] Care Plan Goals: Acute CVA and patent foramina will recommend to take Norvasc 2.5 mg daily, Lipitor 40 mg daily and Eliquis 5 mg 1 tablet twice daily. Health Concerns: Continue Norvasc 2.5 mg daily as previously prescribed Plan of Treatment: Outpatient follow-up with primary care physician call for appointment Outpatient follow-up with senior business intelligence analyst Dr. Prince with for further treatment and evaluation for patent foramen ovale Assessment: As above
--- NOTE | 2024-06-16 12:56 | P.PNIM_ITS ---
Subjective Subjective Date of Service: 06/15/24 Interval History: Offers no acute complaints, denies headache, no dizziness, no recurrent nausea vomiting, gait improved, denies upper extremity weakness numbness. Review of Systems All other system reviewed and are negative. Physical Exam 2 Vital Signs: Vital Signs: Last Vital Signs Temp 97.5 F 06/16/24 11:26 Pulse 72 06/16/24 11:26 Resp 17 06/16/24 11:26 BP 139/62 06/16/24 11:26 Pulse Ox 98 06/16/24 11:26 O2 Del Method Room Air 06/16/24 11:26 BMI result Body Mass Index 29.1 Const: Other: General resting comfortably in no acute distress. Anicteric sclera/no nystagmus Neck no JVD. CVS regular rate rhythm, Respiratory lungs clear to auscultation, no respiratory distress, no wheeze, no rhonchi. Gastrointestinal abdomen soft, non tender, bowel sounds audible, no guarding , no rigidity. Extremities no edema. Neuro non focal ,moving all 4 extremity, speech clear, unsteady gait improved. Skin no rash Psych appropriate affect Objective Data Active Medications Acetaminophen (Acetaminophen 325 Mg Tablet) 650 mg PO Q6H PRN PRN Reason: Pain, Mild (Pain Scale 1-3), fever or headache Aspirin (Aspirin Enteric Coated 81 Mg Tablet.) 81 mg PO DAILY [facility] Last Admin: 06/16/24 08:45 Dose: 81 mg Documented By: DEV Atorvastatin Calcium (Atorvastatin Calcium 40 Mg Tablet) 40 mg PO DAILY [facility] Last Admin: 06/16/24 08:45 Dose: 40 mg Documented By: DEV Calcium Carbonate (Calcium Carbonate 750 Mg Tab.Chew) 750 mg PO Q4H PRN PRN Reason: Heartburn Enoxaparin Sodium (Enoxaparin Sodium 40 Mg/0.4 Ml Syringe) 40 mg SUBCUT Q24H [facility] Last Admin: 06/15/24 20:56 Dose: 40 mg Documented By: LUIS Magnesium Hydroxide (Milk Of Magnesia 30 Ml Oral.Susp) 30 ml PO DAILY PRN PRN Reason: Constipation Melatonin (Melatonin 3 Mg Tablet) 6 mg PO BEDTIME PRN PRN Reason: Insomnia Ondansetron HCl (Ondansetron Hcl 4 Mg/2 Ml Vial) 4 mg IVPUSH Q8H PRN PRN Reason: Nausea and Vomiting Sodium Chloride (0.9 % Sodium Chloride Flush 3 Ml Syringe) 3 ml IVFLUSH QSHIFT [facility] Last Admin: 06/16/24 08:47 Dose: 3 ml Documented By: DEV Vitamin D (Cholecalciferol (Vitamin D3) 25 Mcg Tablet) 25 mcg PO DAILY [facility] Last Admin: 06/16/24 08:45 Dose: 25 mcg Documented By: DEV Labs 06/14/24 15:11 06/14/24 15:11 Assessment and Plan (1) Acute CVA (cerebrovascular accident): Status: Acute (2) Difficulty walking: Status: Acute Plan 59-year-old gentleman with past medical history of hypertension presented with nausea vomiting and unsteady gait and diagnosed to have acute/subacute CVA superior vermis. Acute/subacute CVA No recurrent symptoms of nausea vomiting, no new neuro deficit Stable blood pressure, LDL 131, total cholesterol 188, hemoglobin A1c 5.1 Continue Aspirin/statin Cardiac diet passed bedside swallow eval Seen by Physical therapy they recommend home PT, OT cleared patient Case discussed with Dr. Corrales due to unusual location of stroke he recommend MRI study, echocardiogram obtained report pending, follow MRI History of hypertension resume Norvasc DVT prophylaxis with Lovenox Full code In my clinical judgment patient require inpatient hospitalization for management and further workup for acute CVA and expert consultation. Quality Stroke Does the patient have a stroke diagnosis?: No VTE Prior VTE?: No VTE Risk Level:: Medical - moderate - high VTE Device Contraindication: Treatment Not Indicated VTE Drug Contraindication: N/A - Med Ordered
--- NOTE | 2024-06-16 13:57 | MHC.CM.PN ---
Addendum entered by Jeni Gillespie 06/16/24 14:09: Pt. will not need PT services. Original Note: Pt has been medically cleared, he will go home via private transport, oupt PT is recommended.
== END 2024-06-16 14:33 | disposition home or self-care (01) | DRG 45 ==
LOC: HO.ED 18:02 → HO.EDOVER 18:20 → HO.IMC 23:45
PROVIDERS: Physician Assistant Medical; Admitting Provider Hospitalist; Emergency Provider Emergency Medicine; PCP Internal Medicine; Visit Provider Hospitalist
DX: I63.9 Cerebral infarction, unspecified (principal); Q21.12 Patent foramen ovale; I10 Essential (primary) hypertension; T46.5X6A Underdosing of other antihypertensive drugs, initial encounter; Z91.128 Patient's intentional underdosing of medication regimen for other reason; Z79.899 Other long term (current) drug therapy
CPT/HCPCS: 36415; 70450; 70496; 70498; 70551; 80053; 80061; 80307; 83036; 83735; 84484; 85025; 93005; 93306; 97116; 97161; 97165; 97530; 99285; J1650; Q9957; Q9967

== ENCOUNTER → 2024-06-14 14:40 | Outpatient (BNV) | payer OTHER, SELFPAY | PROVIDERS: Admitting Provider Hospitalist; Emergency Provider Emergency Medicine; PCP Internal Medicine; Visit Provider Internal Medicine Cardiovascular Disease | DX: R42 Dizziness and giddiness (principal); I45.10 Unspecified right bundle-branch block; I44.4 Left anterior fascicular block | CPT/HCPCS: 93010 ==

== ENCOUNTER 2024-06-14 17:48 | Outpatient (BNV) | payer OTHER, SELFPAY | END 2024-06-15 07:00 | PROVIDERS: Admitting Provider Hospitalist; Emergency Provider Emergency Medicine; PCP Internal Medicine; Visit Provider Internal Medicine Cardiovascular Disease | DX: Q21.12 Patent foramen ovale (principal) | CPT/HCPCS: 93303; 93320; 93325 ==

== ENCOUNTER → 2024-06-14 17:48 | Outpatient (BNV) | payer OTHER, SELFPAY | PROVIDERS: Admitting Provider Hospitalist; Emergency Provider Emergency Medicine; PCP Internal Medicine; Visit Provider Internal Medicine Cardiovascular Disease | DX: I63.9 Cerebral infarction, unspecified (principal); Q21.12 Patent foramen ovale | CPT/HCPCS: 99223 ==

== ENCOUNTER → 2024-06-14 17:48 | Outpatient (BNV) | payer OTHER, SELFPAY | PROVIDERS: Admitting Provider Hospitalist; Emergency Provider Emergency Medicine; PCP Internal Medicine; Visit Provider Psychiatry & Neurology Neurology | DX: I69.993 Ataxia following unspecified cerebrovascular disease (principal) | CPT/HCPCS: 99222 ==

== ENCOUNTER → 2024-06-14 17:48 | Outpatient (BNV) | payer OTHER, SELFPAY | PROVIDERS: Admitting Provider Hospitalist; Emergency Provider Emergency Medicine; PCP Internal Medicine; Visit Provider Hospitalist | DX: I63.9 Cerebral infarction, unspecified (principal); R26.2 Difficulty in walking, not elsewhere classified | CPT/HCPCS: 99223; 99239; 99499 ==